=== PATIENT | male | born 1945 | race American Indian/Alaskan Native ===

== ENCOUNTER 2016-06-18 10:37 | Outpatient (CLI) | payer MEDICARE ==
--- NOTE | 2016-06-19 07:30 | Nuclear Medicine Report ---
BONE SCAN: History: Initial staging of prostate cancer. No history of pain. Comparison: No relevant comparisons at this facility. After injection of isotope, gamma camera imaging of the bony system was done. There is a normal uptake of isotope throughout the bony structures without areas of significantly increased or decreased uptake. Normal uptake in the urinary system is seen. IMPRESSION: Normal bone scan.
== END 2016-06-18 10:38 | disposition home or self-care (01) ==
LOC: NM 10:37
PROVIDERS: ATTEND Urology
DX: C61 Malignant neoplasm of prostate (principal)
CPT/HCPCS: 78306; A9503